=== PATIENT | female | born 2000 | race Caucasian/White ===

== ENCOUNTER 2021-09-03 21:34 | Emergency (ER) | payer OTHER ==
[2021-09-03 23:10] LABS: HEMOGLOBIN 12.6 gm/dl (12.3-15.3); RED BLOOD COUNT 4.31 M/UL (4.00-5.10); WHITE BLOOD COUNT 7.9 K/UL (4.5-11.0)
[2021-09-03 23:17] LABS: BUN/CREATININE RATIO 20 (0-10)
[2021-09-04] MEDS ORDERED: BENTYL 20MG TAB20 MG PO (01:28)
[2021-09-04] MEDS ORDERED: ZOFRAN ODT 4 MG4 MG PO (01:28)
== END 2021-09-04 03:03 | disposition home or self-care (01) ==
LOC: ER1 21:34
PROVIDERS: Physician Assistant
DX: M62.08 Separation of muscle (nontraumatic), other site (principal); F17.210 Nicotine dependence, cigarettes, uncomplicated
CPT/HCPCS: 80053; 81001; 84703; 85025; 99284; Q9967